=== PATIENT | female | born 1950 | race Caucasian/White ===

== ENCOUNTER 2020-05-30 14:49 | Outpatient (CLI) | payer MEDICARE, SELFPAY ==
--- NOTE | ~2020-05-30 | MR_ITS ---
EXAMINATION: MR brain/brain stem wo/w con DATE: 05/30/2020 16:08 INDICATION: Pituitary adenoma. TECHNIQUE: Magnetic resonance imaging (MRI) of the brain and brainstem was performed without and with 20 mL MultiHance intravenous contrast. Whole-brain sequences included sagittal T1-weighted FSE, axia l diffusion-weighted FS EPI, axial T2*-weighted GRE, axial T2-weighted FLAIR Propeller, and axial T2- weighted Propeller. Small [id number] sequences included sagittal and coronal T1-weighted FSE cente red at the pituitary. Postcontrast sequences included small [id number] coronal T1-weighted FSE in a time course and sagittal T1-weighted FSE and whole-brain axial T1-weighted FSE. Apparent diffusion coefficient (ADC) maps were created. COMPARISON: Brain MRI 12/23/2017, head CT 12/14/2017 FINDINGS: The sella is enlarged. There is rightward deviation of the infundibulum. There is an enhanc ing mass involving the sella and sphenoid sinus and invading left cavernous sinus measuring 3.3 x 1.4 x 2.0 cm that previously measured 3.2 x 1.3 x 2.3 cm. There is no mass effect on the optic chiasm. T here is no intracranial hemorrhage or acute ischemic infarct. There are scattered areas of nonspecifi c increased T2-weighted signal intensity in the cerebral white matter and najma, which is within carole l limits for the patient's age. The ventricles are normal in size. There are likely changes of left o cular lens replacement surgery. The mastoid air cells are normal. IMPRESSION: 1. 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 Reviewed, dictated and finalized at location A. TURNER IMPRESSION: 1. 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
[2020-05-30 15:29] LABS: Estimated Glomerular Filt Rate 44
== END 2020-05-30 14:50 | disposition home or self-care (01) ==
PROVIDERS: Family Provider Family Medicine; PCP Family Medicine
DX: D35.2 Benign neoplasm of pituitary gland (principal)
CPT/HCPCS: 70553; A9577

== ENCOUNTER 2022-07-05 12:19 | Outpatient (CLI) | payer MEDICARE, SELFPAY ==
--- NOTE | ~2022-07-05 | XR_ITS ---
EXAMINATION: XR abdomen/kub 1V INDICATION: Left-sided abdominal pain TECHNIQUE: Supine views of the abdomen were obtained on 2 radiographs. COMPARISON: None FINDINGS: An ovoid density projects in the left paraspinal region of the upper abdomen which has the appearance of ingested medication. No definite urolithiasis is identified. There is calcified atheros clerosis. There is severe lumbar spondylosis. IMPRESSION: 1. No radiographic correlate for the patient's symptoms. Reviewed, dictated and finalized at location F. [employer]
== END 2022-07-05 12:20 | disposition home or self-care (01) ==
PROVIDERS: PCP Family Medicine; Visit Provider Nurse Practitioner Family
DX: R10.9 Unspecified abdominal pain (principal); M54.50 Low back pain, unspecified
CPT/HCPCS: 74018

== ENCOUNTER 2022-12-01 11:08 | Outpatient (CLI) | payer MEDICARE, SELFPAY ==
--- NOTE | ~2022-12-01 | XR_ITS ---
Right Shoulder Technique: AP and scapular Y views were obtained. Clinical History: Pain Findings: No fracture or dislocation is seen. Osseous alignment is anatomic. The glenohumeral and acr omioclavicular joint spaces are preserved. Soft tissues are unremarkable. Impression: Unremarkable right shoulder radiographs. Reviewed, dictated and finalized at [facility]. Impression: Unremarkable right shoulder radiographs.
== END 2022-12-01 11:09 | disposition home or self-care (01) ==
LOC: ANHIMG 11:18
PROVIDERS: PCP Family Medicine; Visit Provider Nurse Practitioner Family
DX: M25.511 Pain in right shoulder (principal)
CPT/HCPCS: 73030

== ENCOUNTER 2022-12-21 12:34 | Outpatient (CLI) | payer MEDICARE, SELFPAY ==
--- NOTE | ~2022-12-21 | MR_ITS ---
EXAMINATION: MR brain/brain stem wo/w con DATE: 12/21/2022 14:06 INDICATION: Benign neoplasm of pituitary gland. TECHNIQUE: Magnetic resonance imaging (MRI) of the brain and brainstem was performed without and with 20 mL MultiHance intravenous contrast. COMPARISON: Brain MRI 05/22/2020 FINDINGS: The sella is enlarged. There is rightward deviation of the infundibulum. There is enhancing mass involving the sella and sphenoid sinus and invading left cavernous sinus measuring 3.3 x 1.4 x 2.0 cm without change. There is no mass effect on the optic chiasm. There is no intracranial hemorrha ge or acute ischemic infarct. There are scattered areas of nonspecific increased T2-weighted signal i ntensity in the cerebral white matter and najma, which is within normal limits for the patient's age. The ventricles are normal in size. There is mild mucosal thickening in the paranasal sinuses. There a re likely changes of ocular lens replacement surgeries. The mastoid air cells are normal. IMPRESSION: 1. Stable 3.3 cm mass involving the sella, sphenoid sinus, and left cavernous sinus, most likely a pi tuitary macroadenoma. Reviewed, dictated and finalized at location A. IMPRESSION: 1. 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
--- NOTE | ~2022-12-21 | MR_ITS ---
EXAMINATION: MR shoulder RT wo con DATE: 12/21/2022 13:34 INDICATION: Right shoulder pain TECHNIQUE: Magnetic resonance imaging (MRI) of the right shoulder was performed without intravenous c ontrast. Sequences included axial PD-weighted FS FSE, coronal oblique PD-weighted FS FSE, coronal obl ique T2-weighted FS FSE, sagittal PD-weighted FS FSE, and sagittal T1-weighted SE. COMPARISON: Right shoulder radiographs dated 12/01/2022 FINDINGS: Coracoacromial arch: The acromion undersurface is minimally curved in morphology (type I-II). The coracoacromial ligament is normal. Mild acromioclavicular osteoarthritis. Rotator cuff: Moderate supraspinatus and mild infraspinatus tendinopathy. There is attenuation of the distal supras pinatus tendon with partial thickness articular sided tear along the superior facet footplate involvi ng greater than 50% the cartilage thickness. There is a small region of bursal sided fraying along th e distal aspect of the posterior supraspinatus tendon and could not exclude full-thickness perforatio n of the tendon without a measurable full-thickness tear defect. Mild to moderate cephalad predominan t subscapularis tendinopathy without discrete tear. The teres minor tendon is normal. Mild fatty atro phy of the supraspinatus and infraspinatus muscle bellies. Biceps tendon, glenoid labrum and glenohumeral cartilage: Moderate tendinopathy of the intra-articular portion of the long head biceps tendon. Degenerative tea ring of the posterior superior glenoid labrum. Additional small tear slightly posterior to the 6:00 p osition of the glenoid labrum. Glenohumeral cartilage appears relatively preserved. Fluid: There is increased fluid along the long head biceps tendon sheath which could be related to the small glenohumeral joint effusion and/or bicipital tenosynovitis. No loose osteochondral bodies. Small dinora unt of fluid in the subacromial/subdeltoid bursa which could be due to mild bursitis or decompression of the glenohumeral joint effusion through the suspected tiny full-thickness perforation of the supr aspinatus tendon. Bones: Bone alignment is normal. No fracture or pathologic marrow replacing process. IMPRESSION: 1. Mild to moderate rotator cuff tendinopathy greatest at the supraspinatus and cephalad subscapulari s tendons with moderate severity articular sided tear of the distal supraspinatus tendon with additio nal juxtaposed small region of bursal sided fraying suggesting possibility of tiny full-thickness per forations but without a well-defined measurable full-thickness tear defect. 2. Moderate tendinopathy of the intra-articular long head biceps tendon. 3. Degenerative tearing of the posterosuperior glenoid labrum and a small tear at the inferior labrum . 4. Mild acromioclavicular osteoarthritis. Reviewed, dictated and finalized at location A. IMPRESSION: 1. Mild to moderate rotator cuff tendinopathy greatest at the supraspinatus and cephalad subscapularis tendons with moderate severity articular sided tear of the distal supraspinatus tendon with additional juxtaposed small region of burs al sided fraying suggesting possibility of tiny full-thickness perforations but without a well-defined measurable full-thickness tear defect. 2. Moderate tendinopathy of the intra-articular long head biceps tendon. 3. Degenerative tearing of the posterosuperior glenoid labrum and a small tear at the inferior labrum. 4. Mild acromioclavicular osteoarthritis.
== END 2022-12-21 12:35 ==
PROVIDERS: PCP Family Medicine; Visit Provider Nurse Practitioner Family
DX: D35.2 Benign neoplasm of pituitary gland (principal); R20.0 Anesthesia of skin; R20.2 Paresthesia of skin; R29.898 Other symptoms and signs involving the musculoskeletal system; M19.011 Primary osteoarthritis, right shoulder
CPT/HCPCS: 70553; 73221; A9577

== ENCOUNTER 2023-08-26 16:19 | Outpatient (CLI) | payer MEDICARE, SELFPAY ==
--- NOTE | ~2023-08-26 | US_ITS ---
EXAMINATION: US venous doppler [facility] DATE: 08/26/2023 17:16 INDICATION: Lower limb localized edema. TECHNIQUE: Grayscale ultrasound images without and with compression and Doppler ultrasound images of the bilateral lower extremity veins were obtained. COMPARISON: Ultrasound 11/27/16 FINDINGS: The visualized portions of right common femoral vein, profunda (deep) femoral vein, femoral vein, pop liteal vein, peroneal veins, posterior tibial veins, and greater saphenous vein outflow are patent. The visualized portions of left common femoral vein, profunda femoral vein, femoral vein, popliteal v ein, peroneal veins, posterior tibial veins, and greater saphenous vein outflow are patent. There is subcutaneous edema in left calf. IMPRESSION: 1. No deep venous thrombosis. Reviewed, dictated and finalized at location E.
== END 2023-08-26 16:20 | disposition home or self-care (01) ==
LOC: ANHIMG 16:21
PROVIDERS: PCP Family Medicine; Visit Provider Family Medicine
DX: R60.0 Localized edema (principal); L03.90 Cellulitis, unspecified
CPT/HCPCS: 93970